=== PATIENT | male | born 1965 | race Caucasian/White ===

== ENCOUNTER 2017-02-16 12:16 | Emergency (ER) | payer MEDICARE, MEDICAID ==
[~2017-02-16] VITALS: Ht 175.3 cm; Wt 62.6 kg
[2017-02-16 13:55] LABS: BASOPHILS # (AUTO) 0.3 K/uL (0.0-8.0); BASOPHILS % (AUTO) 3.4 % (0.0-2.0); EOSINOPHILS # (AUTO) 0.2 K/uL (0.0-0.7); EOSINOPHILS % (AUTO) 1.9 % (0.0-7.0); HEMATOCRIT 46.2 % (40-50); HEMOGLOBIN 15.3 G/DL (14.0-18.0); LYMPHOCYTES # (AUTO) 1.2 K/UL (0.8-4.8); LYMPHOCYTES % (AUTO) 12.9 % (20.5-51.5); MEAN CORPUSCULAR HEMOGLOBIN 29.9 UUG (27.0-31.0); MEAN CORPUSCULAR HGB CONC 33 g/dL (32.0-37.0); MEAN CORPUSCULAR VOLUME 90.6 FL (82.0-92.0); MONOCYTES # (AUTO) 0.7 K/UL (0.1-1.30); MONOCYTES % (AUTO) 7.5 % (0.0-11.0); NEUTROPHILS # (AUTO) 7.2 K/UL (1.8-8.9); NEUTROPHILS % (AUTO) 74.3 % (38.5-71.5); PLATELET COUNT (AUTO) 208 K/UL (150-450); WHITE BLOOD COUNT (AUTO) 9.6 K/UL (4.0-11.2)
[2017-02-16 14:04] LABS: CREATININE 0.8 mg/dL (0.6-1.3); POTASSIUM 3.7 mmol/L (3.5-5.1)
[2017-02-16 14:11] LABS: BILIRUBIN,DIRECT 0.1 mg/dL (0.0-0.2); BILIRUBIN,TOTAL 0.6 mg/dL (0.2-1.0); TOTAL PROTEIN, SERUM 6.5 g/dL (6.4-8.2)
--- NOTE | 2017-02-16 15:26 | NUR ---
Patient discharged to home in stable conditon. Written and verbal after care instructions given. Patient verbalizes understanding of instructions. Stressed follow up or return to ER for worsening s/s. Pt was given referrals for follow up by Dr. Whitaker.
[2017-02-16 15:27] VITALS: BP 123/78
== END 2017-02-16 15:27 | disposition home or self-care (01) ==
LOC: ER 12:23
DX: J44.9 Chronic obstructive pulmonary disease, unspecified (principal); F17.210 Nicotine dependence, cigarettes, uncomplicated; M19.90 Unspecified osteoarthritis, unspecified site; R41.82 Altered mental status, unspecified; Z59.0 Homelessness
CPT/HCPCS: 36415; 70450; 71010; 80048; 80076; 83605; 84484; 85025; 85730; 87040 ×2; 93005; 99285; A4663; 70030-TC

== ENCOUNTER 2018-12-23 14:15 | Emergency (ER) | payer OTHER, MEDICAID ==
[~2018-12-23] VITALS: Ht 175.3 cm; Wt 59.0 kg
--- NOTE | 2018-12-23 14:30 | NUR ---
PATIENT WAS MSE BY DR CHRISTIANSON IN ROOM 04A.
[2018-12-23] MEDS ORDERED: ACETAMINOPHEN ES 500 MG TABLET PO ONE (14:45)
--- NOTE | 2018-12-23 14:45 | NUR ---
[employer] AT BEDSIDE. PATIENT NOTED NOT IN ANY DISTRESS.
[2018-12-23 14:47] LABS: BASOPHILS # (AUTO) 0.1 K/uL (0.0-8.0); BASOPHILS % (AUTO) 1.2 % (0.0-2.0); EOSINOPHILS # (AUTO) 0.3 K/uL (0.0-0.7); EOSINOPHILS % (AUTO) 4.9 % (0.0-7.0); HEMATOCRIT 45.3 % (36.7-47.1); HEMOGLOBIN 15.1 g/dL (12.5-16.3); LYMPHOCYTES # (AUTO) 1.3 K/uL (20.0-40.0); LYMPHOCYTES % (AUTO) 20.6 % (20.5-51.5); MEAN CORPUSCULAR HEMOGLOBIN 30.1 uug (23.8-33.4); MEAN CORPUSCULAR HGB CONC 33 g/dL (32.5-36.3); MEAN CORPUSCULAR VOLUME 90.6 fL (73.0-96.2); MONOCYTES # (AUTO) 0.6 K/uL (2.0-10.0); MONOCYTES % (AUTO) 10.4 % (0.0-11.0); NEUTROPHILS # (AUTO) 3.9 K/uL (1.8-8.9); NEUTROPHILS % (AUTO) 62.9 % (38.5-71.5); PLATELET COUNT (AUTO) 171 K/uL (152-348); WHITE BLOOD COUNT (AUTO) 6.2 K/uL (3.6-10.2)
[2018-12-23] MEDS ORDERED: ACETAMINOPHEN ES 500 MG TABLET ONE (14:51)
[2018-12-23 14:53] LABS: CREATININE 0.8 mg/dL (0.6-1.3); POTASSIUM 4.1 mmol/L (3.5-5.1)
[2018-12-23 15:05] LABS: BILIRUBIN,DIRECT 0.2 mg/dL (0.0-0.2); TOTAL PROTEIN, SERUM 6.4 g/dL (6.4-8.2)
--- NOTE | 2018-12-23 15:30 | NUR ---
PATIENT GIVE MEAL AND JUICE. NO C/O ANY N/V.
[2018-12-23] MEDS ORDERED: IPRATROPIUM BROMIDE 0.5 MG/2.5 ML NEBU NEB ONE (17:30)
[2018-12-23] MEDS ORDERED: ALBUTEROL SULFATE 2.5 MG/3 ML NEBU NEB ONE (17:30)
[2018-12-23] MEDS ORDERED: ALBUTEROL SULFATE 2.5 MG/3 ML NEBU ONE (17:33)
[2018-12-23] MEDS ORDERED: IPRATROPIUM BROMIDE 0.5 MG/2.5 ML NEBU ONE (17:34)
--- NOTE | 2018-12-23 18:00 | NUR ---
Patient is resting comfortably in bed with eyes closed
[2018-12-23] MEDS ORDERED: GABA-532 PO (18:12)
[2018-12-23] MEDS ORDERED: ALBU18HF2 IH (18:12)
--- NOTE | 2018-12-23 19:10 | NUR ---
Provided meal for patient
--- NOTE | 2018-12-23 19:24 | NUR ---
Patient given written and verbal discharge instructions. Patient verbalizes understanding of instructions. Patient is ambulatory with steady gait. Refuses offer of long-term placement. Patient given list of available shelters in surrounding area. walked out of ER with no distress noted
[2018-12-23 19:25] VITALS: BP 117/66
== END 2018-12-23 19:26 | disposition home or self-care (01) ==
LOC: ER 14:15
DX: J44.1 Chronic obstructive pulmonary disease with (acute) exacerbation (principal); R51 Headache; F32.9 Major depressive disorder, single episode, unspecified; F17.210 Nicotine dependence, cigarettes, uncomplicated; Z59.0 Homelessness; Z79.899 Other long term (current) drug therapy
CPT/HCPCS: 36415; 70030-TC; 71045; 85025; 93005; A4663; A9150; J3590

== ENCOUNTER 2019-03-06 01:24 | Emergency (ER) | payer MEDICARE, MEDICAID ==
[~2019-03-06] VITALS: Ht 175.3 cm; Wt 59.0 kg
[~2019-03-06 01:24] MED LIST: ALBU18HF2 IH; GABA-532 PO
[2019-03-06] MEDS ORDERED: ASPIRIN 81 MG TAB.CHEW PO ONE (01:30)
[2019-03-06] MEDS ORDERED: HYDROCODONE/APAP 10-325 MG TABLET PO ONE (01:30)
[2019-03-06] MEDS ORDERED: ALBUTEROL SULFATE 2.5 MG/3 ML NEBU NEB ONE (01:30)
[2019-03-06] MEDS ORDERED: IPRATROPIUM BROMIDE 0.5 MG/2.5 ML NEBU NEB ONE (01:30)
[2019-03-06] MEDS ORDERED: ALBUTEROL SULFATE 2.5 MG/3 ML NEBU ONE (01:39)
[2019-03-06] MEDS ORDERED: IPRATROPIUM BROMIDE 0.5 MG/2.5 ML NEBU ONE (01:39)
--- NOTE | 2019-03-06 01:40 | NUR ---
BIB [facility] for c/o SOB. Speech clear, speaks in complete sentences. A/Ox4. Patient seen up and around rearranging bedside tables. Patient completely turned off the lights and closed the door to the patient care room that the patient was inside. Per EMS patient called dispatch d/t SOB, but then changed his chief complaint to being back pain. Respiratory even and unlabored, cough noted. No cardiovascular distress noted, all pulses palpable no signs of edema in lower extremities. Denies any n/v/d, or any gu distress. Patient in bed at lowest position, sr upx2, call light within reach. Fall precautions implemented per protocol.
[2019-03-06 01:47] LABS: BASOPHILS # (AUTO) 0.1 K/uL (0.0-8.0); BASOPHILS % (AUTO) 1.3 % (0.0-2.0); EOSINOPHILS # (AUTO) 0.8 K/uL (0.0-0.7); HEMATOCRIT 44.1 % (36.7-47.1); HEMOGLOBIN 14.8 g/dL (12.5-16.3); LYMPHOCYTES # (AUTO) 1.5 K/uL (20.0-40.0); MEAN CORPUSCULAR HGB CONC 34 g/dL (32.5-36.3); MEAN CORPUSCULAR VOLUME 92.2 fL (73.0-96.2); MONOCYTES # (AUTO) 0.8 K/uL (2.0-10.0); MONOCYTES % (AUTO) 10.1 % (0.0-11.0); NEUTROPHILS # (AUTO) 4.5 K/uL (1.8-8.9); NEUTROPHILS % (AUTO) 58.6 % (38.5-71.5); PLATELET COUNT (AUTO) 206 K/uL (152-348); RED BLOOD CELL COUNT(AUTO) 4.78 MIL/uL (4.06-5.63); WHITE BLOOD COUNT (AUTO) 7.6 K/uL (3.6-10.2)
[2019-03-06] MEDS ORDERED: ASPIRIN 81 MG TAB.CHEW ONE (01:50)
[2019-03-06] MEDS ORDERED: HYDROCODONE/APAP 10-325 MG TABLET ONE (01:50)
[2019-03-06 01:57] LABS: POTASSIUM 4.1 mmol/L (3.5-5.1)
--- NOTE | 2019-03-06 02:03 | NUR ---
PER ERMD patient to have TROP re-drawn @ [id number].
[2019-03-06 02:10] LABS: BILIRUBIN,DIRECT 0.1 mg/dL (0.0-0.2); BILIRUBIN,TOTAL 0.2 mg/dL (0.2-1.0); TOTAL PROTEIN, SERUM 6.7 g/dL (6.4-8.2)
--- NOTE | 2019-03-06 03:30 | NUR ---
Patient asleep in bed NAD, VSS
--- NOTE | 2019-03-06 05:41 | NUR ---
Patient given written and verbal discharge instructions. Patient verbalizes understanding of instructions. Patient is ambulatory with stable gait. Refuses offer of [facility] placement. Patient given list of available shelters in surrounding area.
== END 2019-03-06 05:45 | disposition home or self-care (01) ==
LOC: ER 01:27
DX: S20.211A Contusion of right front wall of thorax, initial encounter (principal); J44.9 Chronic obstructive pulmonary disease, unspecified; G89.4 Chronic pain syndrome; F15.10 Other stimulant abuse, uncomplicated; F32.9 Major depressive disorder, single episode, unspecified; F12.10 Cannabis abuse, uncomplicated; F17.290 Nicotine dependence, other tobacco product, uncomplicated; Z59.0 Homelessness; Z71.6 Tobacco abuse counseling; Z79.899 Other long term (current) drug therapy; X58.XXXA Exposure to other specified factors, initial encounter; Y93.89 Activity, other specified; Y92.89 Other specified places as the place of occurrence of the external cause; Y99.8 Other external cause status
CPT/HCPCS: 36415; 70030-TC; 71045; 85025; 85730; 93005; A4663; J3590

== ENCOUNTER 2022-04-25 07:33 | Emergency (ER) | payer OTHER, MEDICAID ==
[~2022-04-25] VITALS: Ht 175.3 cm; Wt 63.5 kg
--- NOTE | 2022-04-25 07:35 | NUR ---
Dr Balderrama at the bedside for MSE.
--- NOTE | 2022-04-25 07:40 | NUR ---
Pt states he is not homeless and he is staying w/ friend and has a roommate.
[2022-04-25] MEDS ORDERED: ALBUTEROL SULFATE 2.5 MG/3 ML NEBU NEB ONE (07:45)
[2022-04-25] MEDS ORDERED: IPRATROPIUM BROMIDE 0.5 MG/2.5 ML NEBU NEB ONE (07:45)
[2022-04-25] MEDS ORDERED: predniSONE 10 MG TABLET PO ONE (07:45)
[2022-04-25] MEDS ORDERED: predniSONE 50 MG TABLET ONE (07:53)
[2022-04-25] MEDS ORDERED: predniSONE 10 MG TABLET ONE (07:53)
[2022-04-25] MEDS ORDERED: ALBUTEROL SULFATE 2.5 MG/3 ML NEBU ONE (08:02)
[2022-04-25] MEDS ORDERED: IPRATROPIUM BROMIDE 0.5 MG/2.5 ML NEBU ONE (08:02)
[2022-04-25] MEDS ORDERED: ALBU18HF2 INH (08:41)
[2022-04-25] MEDS ORDERED: PRED50TA PO (08:41)
[2022-04-25 09:09] VITALS: BP 133/89
--- NOTE | 2022-04-25 09:09 | NUR ---
Patient discharged to home in stable condition. Written and verbal after care instructions given. Patient verbalizes understanding of instructions. Stressed follow up or return to ER for worsening s/s.
== END 2022-04-25 09:12 | disposition home or self-care (01) ==
LOC: ER 07:36
DX: J44.1 Chronic obstructive pulmonary disease with (acute) exacerbation (principal); Z59.00 Homelessness unspecified; Z90.2 Acquired absence of lung [part of]; G62.9 Polyneuropathy, unspecified; R03.0 Elevated blood-pressure reading, without diagnosis of hypertension
CPT/HCPCS: 99283; 71045; 94640; J7512 ×2; A4663; J3590